=== PATIENT | female | born 1990 | race Caucasian/White ===

== ENCOUNTER 2016-10-21 14:46 | Emergency (ER) | payer BC, OTHER, SELFPAY ==
[~2016-10-21] VITALS: Ht 157.5 cm; Wt 103.0 kg
[2016-10-21 14:53] VITALS: BP 155/85
[2016-10-21] MEDS ORDERED: TYLE325T5 PO (15:00)
[2016-10-21] MEDS ORDERED: KEFL500C7 PO (15:00)
[2016-10-21] MEDS ORDERED: LIDOCAINE 2% MDV 20 ML VIAL SC ONE (15:45)
== END 2016-10-21 16:14 | disposition home or self-care (01) ==
LOC: EEVIPCON 16:11 → M ED 16:11
DX: L02.413 Cutaneous abscess of right upper limb (principal); L03.113 Cellulitis of right upper limb; J45.909 Unspecified asthma, uncomplicated; Z79.2 Long term (current) use of antibiotics

== ENCOUNTER 2017-12-21 21:02 | Emergency (ER) | payer OTHER, SELFPAY ==
[2017-12-21] MEDS: ALBUTEROL SULFATE 2.5 MG/0.5 ML INH NEB SOLN NEB (22:53)
[2017-12-21] MEDS: AMOXICILLIN 500 MG CAP PO (23:30)
== END 2017-12-21 23:36 | disposition home or self-care (01) ==
LOC: M ED 21:02
DX: J02.0 Streptococcal pharyngitis (principal)
CPT/HCPCS: 71046

== ENCOUNTER → 2021-01-05 | Outpatient (REF) | payer OTHER ==
[~2021-01-05] MED LIST: AMOX500C PO; KEFL500C17 PO; PROAAER10 INH; TYLE325T5 PO
[2021-01-05 11:04] LABS: BASO # 0.1 10^3/uL (0.0-0.2); BASO % 0.8 % (0.0-1.0); EOS # 0.2 10^3/uL (0.0-0.5); EOS % 2.1 % (0.0-3.0); HEMATOCRIT 40.2 % (36.0-47.0); HEMOGLOBIN 13.7 g/dl (12.0-15.5); LYMPH # 2.5 10^3/uL (1.5-5.0); LYMPH % 30.9 % (24.0-44.0); MEAN CORPUSCULAR HEMOGLOBIN 29.9 pg (27.0-33.0); MEAN CORPUSCULAR HGB CONC 34.1 g/dl (32.0-36.5); MEAN CORPUSCULAR VOLUME 87.8 fl (80.0-96.0); MONO # 0.7 10^3/uL (0.0-0.8); MONO % 8.7 % (2.0-8.0); NEUTROPHILS # 4.6 10^3/uL (1.5-8.5); NEUTROPHILS % 57.1 % (36.0-66.0); PLATELET COUNT, AUTOMATED 293 10^3/uL (150-450); RED BLOOD COUNT 4.58 10^6/uL (4.00-5.40)
[2021-01-05 11:20] LABS: HEMOGLOBIN A1c 4.5 %
[2021-01-05 11:41] LABS: ALT/SGPT 37 U/L (12-78); BILIRUBIN,TOTAL 1.2 MG/DL (0.2-1.0); BLOOD UREA NITROGEN 11 MG/DL (7-18); CALCIUM LEVEL 8.9 MG/DL (8.5-10.1); CARBON DIOXIDE LEVEL 30 MEQ/L (21-32); CHLORIDE LEVEL 106 MEQ/L (98-107); CREATININE FOR GFR 0.66 MG/DL (0.55-1.30); FREE T4 0.99 NG/DL (0.76-1.46); GLOMERULAR FILTRATION RATE > 60.0 (>60); GLUCOSE, FASTING 78 MG/DL (70-100); POTASSIUM SERUM 3.9 MEQ/L (3.5-5.1); SODIUM LEVEL 141 MEQ/L (136-145); TOTAL PROTEIN 7.2 GM/DL (6.4-8.2)
== END ==
LOC: M WUC 09:59
PROVIDERS: ATTEND Nurse Practitioner Family
DX: Z00.00 Encounter for general adult medical examination without abnormal findings (principal)

== ENCOUNTER → 2021-03-18 | Outpatient (CLI) | payer OTHER ==
[2021-03-18 11:01] LABS: BASO # 0.1 10^3/uL (0.0-0.2); BASO % 0.8 % (0.0-1.0); EOS # 0.1 10^3/uL (0.0-0.5); EOS % 1.7 % (0.0-3.0); HEMOGLOBIN 13.7 g/dl (12.0-15.5); LYMPH # 2.6 10^3/uL (1.5-5.0); MEAN CORPUSCULAR HEMOGLOBIN 30.2 pg (27.0-33.0); MEAN CORPUSCULAR HGB CONC 34.3 g/dl (32.0-36.5); MEAN CORPUSCULAR VOLUME 88.3 fl (80.0-96.0); MONO # 0.8 10^3/uL (0.0-0.8); MONO % 9.6 % (2.0-8.0); NEUTROPHILS # 4.7 10^3/uL (1.5-8.5); NEUTROPHILS % 56.7 % (36.0-66.0); PLATELET COUNT, AUTOMATED 302 10^3/uL (150-450); RED BLOOD COUNT 4.53 10^6/uL (4.00-5.40); WHITE BLOOD COUNT 8.4 10^3/uL (4.0-10.0)
[2021-03-18 11:28] LABS: ALBUMIN 3.9 GM/DL (3.2-5.2); ALT/SGPT 36 U/L (12-78); BILIRUBIN,DIRECT 0.2 MG/DL (0.0-0.2); BILIRUBIN,TOTAL 0.7 MG/DL (0.2-1.0); BLOOD UREA NITROGEN 9 MG/DL (7-18); CALCIUM LEVEL 8.7 MG/DL (8.5-10.1); CARBON DIOXIDE LEVEL 28 MEQ/L (21-32); CHLORIDE LEVEL 109 MEQ/L (98-107); CREATININE FOR GFR 0.66 MG/DL (0.55-1.30); GLOMERULAR FILTRATION RATE > 60.0 (>60); GLUCOSE, FASTING 87 MG/DL (70-100); PHOSPHORUS LEVEL 2.4 MG/DL (2.5-4.9); POTASSIUM SERUM 4.3 MEQ/L (3.5-5.1); SODIUM LEVEL 142 MEQ/L (136-145); TOTAL PROTEIN 7.2 GM/DL (6.4-8.2)
== END ==
LOC: M WUC 08:46
PROVIDERS: ATTEND Podiatrist Foot & Ankle Surgery
DX: B35.1 Tinea unguium (principal)

== ENCOUNTER → 2022-10-14 | Outpatient (CLI) | payer OTHER ==
[~2022-10-14] MED LIST changes: +PROHANCE 279.3MG/ML 15ML VIAL As Ordered ONE; +PROHANCE 279.3MG/ML 5ML VIAL As Ordered ONE
== END ==
LOC: M RAD 15:42
PROVIDERS: ATTEND Student in an Organized Health Care Education/Training Program
DX: E34.8 Other specified endocrine disorders (principal)
CPT/HCPCS: 70553; A9576

== ENCOUNTER 2024-10-22 12:42 | Emergency (ER) | payer OTHER ==
[~2024-10-22] VITALS: Ht 154.9 cm; Wt 100.6 kg
[~2024-10-22 12:42] MED LIST changes: -PROHANCE 279.3MG/ML 15ML VIAL As Ordered ONE; -PROHANCE 279.3MG/ML 5ML VIAL As Ordered ONE
[2024-10-22] MEDS ORDERED: MULTTAB20 PO (12:50)
[2024-10-22 15:18] LABS: BASO % 0.2 % (0.0-1.0); EOS % 0.1 % (0.0-3.0); HEMATOCRIT 42.2 % (36.0-47.0); HEMOGLOBIN 15.1 g/dl (12.0-15.5); LYMPH # 0.8 10^3/uL (1.5-5.0); LYMPH % 4.6 % (24.0-44.0); MEAN CORPUSCULAR HEMOGLOBIN 31.7 pg (27.0-33.0); MEAN CORPUSCULAR HGB CONC 35.8 g/dl (32.0-36.5); MEAN CORPUSCULAR VOLUME 88.5 fl (80.0-96.0); MONO # 0.7 10^3/uL (0.0-0.8); MONO % 4.1 % (2.0-8.0); NEUTROPHILS # 15.4 10^3/uL (1.5-8.5); NEUTROPHILS % 90.6 % (36.0-66.0); PLATELET COUNT, AUTOMATED 312 10^3/uL (150-450); RED BLOOD COUNT 4.77 10^6/uL (4.00-5.40)
[2024-10-22 15:48] LABS: BLOOD UREA NITROGEN 9 MG/DL (9-23); CALCIUM LEVEL 9.3 MG/DL (8.5-10.1); CARBON DIOXIDE LEVEL 25 MMOL/L (20-31); CHLORIDE LEVEL 105 MMOL/L (98-107); CREATININE FOR GFR 0.55 MG/DL (0.55-1.30); GLOMERULAR FILTRATION RATE > 60.0 (>60); GLUCOSE, FASTING 110 MG/DL (60-100); POTASSIUM SERUM 4.2 MMOL/L (3.5-5.1); SODIUM LEVEL 138 MMOL/L (136-145)
[2024-10-22 17:01] LABS: KETONE, URINE AUTO RFX 1+ mg/dL (NEGATIVE); MUCUS, URINE RFX LARGE (NEGATIVE); NITRITE, URINE AUTO RFX NEGATIVE (NEGATIVE); RBC, URINE AUTO RFX 0 /HPF (0-3); SQUAM EPITHELIAL CELL UR AURFX 9 /HPF (0-6); WBC, URINE AUTO RFX 8 /HPF (0-3)
[2024-10-22 17:02] LABS: LEUKOCYTE ESTERASE UR AUTO RFX TRACE (NEGATIVE)
[2024-10-22] MEDS: NS (Normal Saline) 0.9% 1,000 ML IV ONE (17:06)
[2024-10-22] MEDS: ONDANSETRON 4MG 2ML VIAL IV ONE (17:06)
[2024-10-22] MEDS: ACETAMINOPHEN 500 MG TAB PO ONE (18:08)
[2024-10-22 18:37] VITALS: BP 142/84; TEMP 98; O2SAT 98
== END 2024-10-22 18:40 | disposition home or self-care (01) ==
LOC: M ED 12:42
DX: O21.9 Vomiting of pregnancy, unspecified (principal); H81.4 Vertigo of central origin; J45.909 Unspecified asthma, uncomplicated; Z79.52 Long term (current) use of systemic steroids; Z79.899 Other long term (current) drug therapy; Z3A.08 8 weeks gestation of pregnancy
CPT/HCPCS: 76801; 80048; 81001; 84702; 85025; 86850; 86900; 86901; 87086; 87486; 87581; 87633; 87798; 93976; 96361; 96374; 99284; J2405

== ENCOUNTER → 2024-11-05 | Outpatient (CLI) | payer OTHER ==
[~2024-11-05] MED LIST changes: +MULTTAB20 PO
[2024-11-05 14:11] LABS: HEMATOCRIT 39.1 % (36.0-47.0); HEMOGLOBIN 13.8 g/dl (12.0-15.5); MEAN CORPUSCULAR HEMOGLOBIN 31.5 pg (27.0-33.0); MEAN CORPUSCULAR HGB CONC 35.3 g/dl (32.0-36.5); MEAN CORPUSCULAR VOLUME 89.3 fl (80.0-96.0); PLATELET COUNT, AUTOMATED 328 10^3/uL (150-450); RED BLOOD COUNT 4.38 10^6/uL (4.00-5.40); WHITE BLOOD COUNT 10.1 10^3/uL (4.0-10.0)
[2024-11-05 14:52] LABS: HIV 1&2 SCREEN NEGATIVE (NEGATIVE)
[2024-11-05 15:00] LABS: HEPATITIS C VIRUS ABY INDEX 0.03 INDEX (<0.8)
[2024-11-05 15:23] LABS: Trichomonas vaginalis (AMP) NOT DETECTED (NEGATIVE)
[2024-11-05 15:48] LABS: GC DNA AMPLIFICATION NEGATIVE (NEGATIVE)
== END ==
LOC: M PLALAB 10:27
PROVIDERS: ATTEND Advanced Practice Midwife
DX: Z34.81 Encounter for supervision of other normal pregnancy, first trimester (principal)

== ENCOUNTER → 2024-12-03 | Outpatient (CLI) | payer OTHER ==
[2024-12-03 15:23] LABS: HEMATOCRIT 38.2 % (36.0-47.0); HEMOGLOBIN 13.7 g/dl (12.0-15.5); MEAN CORPUSCULAR HEMOGLOBIN 31.7 pg (27.0-33.0); MEAN CORPUSCULAR HGB CONC 35.9 g/dl (32.0-36.5); MEAN CORPUSCULAR VOLUME 88.4 fl (80.0-96.0); PLATELET COUNT, AUTOMATED 285 10^3/uL (150-450); RED BLOOD COUNT 4.32 10^6/uL (4.00-5.40); WHITE BLOOD COUNT 11.4 10^3/uL (4.0-10.0)
[2024-12-03 15:30] LABS: LDH LACTATE DEHYDROGENASE 160 U/L (120-246)
[2024-12-03 15:31] LABS: ALT/SGPT 19 U/L (7.0-40); AST/SGOT 10 U/L (<34); BILIRUBIN,TOTAL 1.3 MG/DL (0.3-1.2); GLOMERULAR FILTRATION RATE > 90.0 (>60)
[2024-12-03 15:52] LABS: TOTAL PROTEIN,RANDOM URINE 36.3 MG/DL (0.0-14.0)
[2024-12-03 16:58] LABS: CREATININE,RANDOM URINE 321.4 MG/DL
== END ==
LOC: M PLALAB 11:49
PROVIDERS: ATTEND Nurse Practitioner Family
DX: O10.919 Unspecified pre-existing hypertension complicating pregnancy, unspecified trimester (principal)

== ENCOUNTER → 2025-01-03 | Outpatient (CLI) | payer OTHER | LOC: M WHC 13:51 | PROVIDERS: ATTEND Nurse Practitioner Family | DX: O09.522 Supervision of elderly multigravida, second trimester (principal); O10.012 Pre-existing essential hypertension complicating pregnancy, second trimester; O99.212 Obesity complicating pregnancy, second trimester; E66.09 Other obesity due to excess calories; Z3A.18 18 weeks gestation of pregnancy ==

== ENCOUNTER 2025-02-18 09:14 | Outpatient (CLI) | payer MEDICAID, SELFPAY ==
[~2025-02-18] VITALS: Ht 157.5 cm; Wt 95.8 kg
[2025-02-18 09:39] VITALS: BP 125/70; O2SAT 99
[2025-02-18] MEDS ORDERED: LABE100T40 PO (09:39)
[2025-02-18] MEDS ORDERED: ASPI81CH33 PO (09:39)
[2025-02-18] MEDS ORDERED: HOME MED LIST COMPLETE! XX SCH (09:40)
[2025-02-18] MEDS: ALBUTEROL SULFATE 2.5 MG/0.5 ML INH CONCENTRATE NEB SOLN NEB STA (10:17)
[2025-02-18] MEDS ORDERED: ALBU2.5V10 INH (12:10)
== END 2025-02-18 12:04 | disposition home or self-care (01) ==
LOC: M LDO 09:14
PROVIDERS: ATTEND Specialist
DX: O99.512 Diseases of the respiratory system complicating pregnancy, second trimester (principal); O10.012 Pre-existing essential hypertension complicating pregnancy, second trimester; O09.522 Supervision of elderly multigravida, second trimester; O99.212 Obesity complicating pregnancy, second trimester; J45.909 Unspecified asthma, uncomplicated; E66.09 Other obesity due to excess calories; Z3A.25 25 weeks gestation of pregnancy
CPT/HCPCS: 59025; 87486; 87581; 87633; 87798; G0463

== ENCOUNTER → 2025-02-20 | Outpatient (CLI) | payer OTHER, SELFPAY ==
[~2025-02-20] MED LIST changes: +ALBU2.5V10 INH; +ASPI81CH33 PO; +LABE100T40 PO
== END ==
LOC: M WHC 11:04
PROVIDERS: ATTEND Nurse Practitioner Family
DX: O10.012 Pre-existing essential hypertension complicating pregnancy, second trimester (principal); O09.522 Supervision of elderly multigravida, second trimester; O99.212 Obesity complicating pregnancy, second trimester; E66.09 Other obesity due to excess calories; Z3A.25 25 weeks gestation of pregnancy

== ENCOUNTER → 2025-03-25 | Outpatient (CLI) | payer MEDICAID, OTHER | LOC: M WHC 06:58 | PROVIDERS: ATTEND Advanced Practice Midwife | DX: O99.212 Obesity complicating pregnancy, second trimester (principal); Z3A.30 30 weeks gestation of pregnancy ==

== ENCOUNTER → 2025-04-03 | Outpatient (CLI) | payer OTHER ==
[2025-04-03 13:55] LABS: PLATELET COUNT, AUTOMATED 252 10^3/uL (150-450)
[2025-04-03 14:23] LABS: GLUCOSE CHALLENGE TEST 1 HOUR 112 MG/DL (LESS THAN 140)
[2025-04-03 14:55] LABS: HIV 1&2 SCREEN NEGATIVE (NEGATIVE)
[2025-04-03 15:03] LABS: HEPATITIS C VIRUS ABY INDEX < 0.02 INDEX (<0.8)
[2025-04-03 15:07] LABS: Trichomonas vaginalis (AMP) NOT DETECTED (NEGATIVE)
[2025-04-03 15:30] LABS: GC DNA AMPLIFICATION NEGATIVE (NEGATIVE)
== END ==
LOC: M PLALAB 09:21
PROVIDERS: ATTEND Advanced Practice Midwife
DX: O10.012 Pre-existing essential hypertension complicating pregnancy, second trimester (principal); Z3A.00 Weeks of gestation of pregnancy not specified

== ENCOUNTER → 2025-04-30 | Outpatient (REF) | payer OTHER | LOC: M PLALAB 15:13 | PROVIDERS: ATTEND Advanced Practice Midwife | DX: Z34.93 Encounter for supervision of normal pregnancy, unspecified, third trimester (principal); Z3A.35 35 weeks gestation of pregnancy ==

== ENCOUNTER 2025-05-18 13:49 | Inpatient (IN) | payer OTHER ==
[~2025-05-18] VITALS: Ht 154.9 cm; Wt 94.0 kg
[2025-05-18] MEDS ORDERED: VENTAER INH (14:17)
[2025-05-18] MEDS ORDERED: CYAN-11 PO (14:17)
[2025-05-18 14:19] VITALS: BP 114/67; O2SAT 98
[2025-05-18] MEDS ORDERED: HOME MED LIST COMPLETE! XX SCH (14:20)
[2025-05-18 14:50] LABS: PLATELET COUNT, AUTOMATED 265 10^3/uL (150-450)
[2025-05-18 15:42] LABS: HIV 1&2 SCREEN NEGATIVE (NEGATIVE)
[2025-05-18 15:50] LABS: HEPATITIS C VIRUS ABY INDEX 0.04 INDEX (<0.8)
[2025-05-18] MEDS ORDERED: TRANEXAMIC ACID INJection 1,000 MG in NS 100 ML IV PRN (16:10)
[2025-05-18] MEDS ORDERED: LIDOCAINE 1% MDV 20 ML VIAL INFIL PRN ×2 (16:10→16:45)
[2025-05-18] MEDS ORDERED: CARBOPROST TROMETHAMINE 250 MCG/ML AMP IM PRN (16:10)
[2025-05-18] MEDS ORDERED: **NOTE PATIENT COMMENT** MISC XX SCH (16:40)
[2025-05-18] MEDS ORDERED: ONDANSETRON 4MG 2ML VIAL IV PRN (16:40)
[2025-05-18] MEDS ORDERED: NALOXONE INJ 0.4 MG/1 ML VIAL IV PRN ×2 (16:40)
[2025-05-18] MEDS ORDERED: diphenhydrAMINE 50 MG/ML VIAL IV PRN (16:40)
[2025-05-18] MEDS: LACTATED RINGER'S 1000 ML IV STA (16:50)
[2025-05-18] MEDS: ceFAZolin SODIUM 2 GM in DEXTROSE 5% (D5W) ADV/MINI-BAG 50 ML IV ONE (16:51)
[2025-05-18] MEDS: BICITRA 30 ML SOLN UDC PO ONE (16:51)
[2025-05-18] MEDS ORDERED: ONDANSETRON 4MG 2ML VIAL As Ordered ONE (16:54)
[2025-05-18] MEDS ORDERED: MORPHINE PRES-FREE INJ 10 MG/10 ML VIAL As Ordered ONE (16:54)
[2025-05-18] MEDS ORDERED: KETOROLAC 30 MG/ML 1 ML VIAL As Ordered ONE (16:55)
[2025-05-18] MEDS ORDERED: ACETAMINOPHEN 1000MG/100ML IV BAG As Ordered ONE (17:27)
[2025-05-18] MEDS ORDERED: PHENYLephrine 500MCG 5ML (100MCG/ML) SYRINGE As Ordered ONE (17:40)
[2025-05-18] MEDS ORDERED: dexmedeTOMIDine (4 MCG/ML) 200 MCG/50 ML BTL As Ordered ONE (17:48)
[2025-05-18] MEDS ORDERED: ANUSOL HC CREAM 30 GM TOP PRN (18:25)
[2025-05-18] MEDS ORDERED: CALCIUM CARBONATE 500 MG CHEW U/D PO PRN (18:25)
[2025-05-18] MEDS ORDERED: PERCOCET 5MG/325MG TAB PO PRN ×2 (18:25)
[2025-05-18] MEDS ORDERED: MORPHINE 4 MG/ML 1 ML VIAL IV PRN (18:25)
[2025-05-18] MEDS ORDERED: SIMETHICONE 80MG CHEW TAB PO PRN (18:25)
[2025-05-18] MEDS ORDERED: RHOGAM 300MCG (1500IU) INJ IM SCH (18:25)
[2025-05-18] MEDS ORDERED: COLA100C5 PO (18:33)
[2025-05-18] MEDS ORDERED: PERCOCET PO (18:33)
[2025-05-18] MEDS ORDERED: IBUP80TA PO (18:33)
[2025-05-18 20:05] VITALS: BP 104/67; O2SAT 98
[2025-05-18] MEDS: ONDANSETRON 4MG 2ML VIAL IV PRN (20:14)
[2025-05-18 20:35] VITALS: BP 102/59; O2SAT 98
[2025-05-18 21:03] VITALS: BP 105/61; O2SAT 99
[2025-05-18 22:05] VITALS: BP 95/53; O2SAT 97
[2025-05-18] MEDS: OXYTOCIN DRIP 30 UNITS in IV 1 EA IV SCH (22:26)
[2025-05-18] MEDS: SLF 3 ML SYR IV SCH (22:26)
[2025-05-18] MEDS: LR 1,000 ML IV SCH (22:26)
[2025-05-18 23:05] VITALS: BP 100/63; O2SAT 97
[2025-05-18] MEDS: DOCUSATE SODIUM 100 MG CAPSULE PO SCH (23:44)
[2025-05-19] MEDS: KETOROLAC 30 MG/ML 1 ML VIAL IV SCH (00:46)
[2025-05-19 02:00] VITALS: BP 93/56; O2SAT 99
[2025-05-19 06:00] VITALS: BP 96/59; O2SAT 98
[2025-05-19 06:58] LABS: PLATELET COUNT, AUTOMATED 208 10^3/uL (150-450)
[2025-05-19] MEDS: FERROUS SULFATE 325 MG TAB PO SCH (08:58)
[2025-05-19] MEDS: PRENATAL VITAMINS CHEWABLE TABLET PO SCH (08:58)
[2025-05-19 10:00] VITALS: BP 99/55; O2SAT 98
[2025-05-19 14:00] VITALS: BP 108/61; O2SAT 98
[2025-05-19 18:00] VITALS: BP 117/70; O2SAT 99
[2025-05-19] MEDS: IBUPROFEN 800 MG TAB PO SCH (19:43)
[2025-05-19 22:00] VITALS: BP 111/64; O2SAT 98
[2025-05-20] MEDS: ACETAMINOPHEN 500 MG TAB PO PRN (01:13)
[2025-05-20 02:00] VITALS: BP 111/69; O2SAT 97
[2025-05-20 06:00] VITALS: BP 105/65; O2SAT 96
[2025-05-20] MEDS ORDERED: MEASLES,MUMPS,RUBELLA VACCINE INJ (MMR-II) SC.IMMUN ONE (09:00)
[2025-05-20 09:30] VITALS: BP 105/65; TEMP 97.9; O2SAT 96
[2025-05-20 11:12] LABS: PLATELET COUNT, AUTOMATED 248 10^3/uL (150-450)
== END 2025-05-20 12:44 | disposition home or self-care (01) | DRG 540 ==
LOC: M LDI 13:49 → M OBS 19:55
PROVIDERS: ADMIT Obstetrics & Gynecology; ATTEND Obstetrics & Gynecology
PROC: 10D00Z1 Extraction of Products of Conception, Low, Open Approach (ICD-10-PCS; principal; 2025-05-18 17:09)
DX: O32.1XX0 Maternal care for breech presentation, not applicable or unspecified (principal); O10.02 Pre-existing essential hypertension complicating childbirth; Z37.0 Single live birth; Z3A.38 38 weeks gestation of pregnancy; O09.523 Supervision of elderly multigravida, third trimester; Z79.82 Long term (current) use of aspirin; Z79.899 Other long term (current) drug therapy